=== PATIENT | male | born 1995 | race Caucasian/White ===

== ENCOUNTER 2021-03-25 10:26 | Emergency (ER) | payer SELFPAY ==
[2021-03-25] MEDS ORDERED: NORFLEX 100 MG100 MG PO (12:46)
[2021-03-25] MEDS ORDERED: IBUPROFEN600 MG PO (12:46)
== END 2021-03-25 12:55 | disposition home or self-care (01) ==
LOC: ER1 10:26
DX: S39.012A Strain of muscle, fascia and tendon of lower back, initial encounter (principal); Z90.89 Acquired absence of other organs; X50.9XXA Other and unspecified overexertion or strenuous movements or postures, initial encounter
CPT/HCPCS: 72100; 96372; 99283; J1100; J1885

== ENCOUNTER 2021-07-28 22:08 | Emergency (ER) | payer BC ==
[~2021-07-28 22:08] MED LIST: IBUPROFEN600 MG PO; NORFLEX 100 MG100 MG PO
[2021-07-28 22:41] LABS: HEMOGLOBIN 15.1 gm/dl (14.0-17.5); RED BLOOD COUNT 5.1 M/UL (4.20-5.50); WHITE BLOOD COUNT 6.6 K/UL (4.5-11.0)
[2021-07-28 22:58] LABS: BUN/CREATININE RATIO 15 (0-10)
== END 2021-07-29 02:16 | disposition home or self-care (01) ==
LOC: ER1 22:08
PROVIDERS: Physician Assistant Medical
DX: R07.89 Other chest pain (principal)
CPT/HCPCS: 71045; 80053; 82550; 82553; 84484; 85025; 85379; 93005; 96374; 96375; 99285; J2270; J2405